=== PATIENT | female | born 1950 | race Caucasian/White ===

== ENCOUNTER → 2016-09-03 | Outpatient (CLI) | payer BC, OTHER ==
[~2016-09-03] MED LIST: methylPREDNISolone 80 MG/ML (DEPO MEDROL) VIAL IM ONE
== END ==
LOC: PMC 11:08
PROVIDERS: ATTEND Neurological Surgery
DX: M54.16 Radiculopathy, lumbar region (principal)
CPT/HCPCS: 62323; J1040